=== PATIENT | female | born 1970 | race Hispanic/Latino ===

== ENCOUNTER 2021-11-14 11:45 | Outpatient (CLI) | payer OTHER | END 2021-11-14 11:46 | disposition home or self-care (01) | LOC: CSHLAB 11:45 | PROVIDERS: ATTEND Internal Medicine Gastroenterology | DX: Z20.822 Contact with and (suspected) exposure to COVID-19 (principal); Z12.11 Encounter for screening for malignant neoplasm of colon | CPT/HCPCS: 87811 ==

== ENCOUNTER 2021-11-19 07:57 | Day surgery (SDC) | payer OTHER ==
[2021-11-15 10:38] VITALS: BMI 27.6
[2021-11-19] MEDS ORDERED: PROPOFOL 20 ML ONE ×2 (09:49)
[2021-11-19] MEDS ORDERED: Lidocaine 1% PF 5 ML VIAL ONE (09:49)
[2021-11-19] MEDS ORDERED: Lidocaine 1% MPF 2 ML VIAL ONE (10:05)
[2021-11-19] MEDS ORDERED: Midazolam HCl 2 mg/2 ml Vial ONE (10:18)
== END 2021-11-19 11:17 | disposition home or self-care (01) ==
LOC: CSHSDC 07:57
PROVIDERS: ATTEND Internal Medicine Gastroenterology
PROC: 0DBN8ZZ Excision of Sigmoid Colon, Via Natural or Artificial Opening Endoscopic (ICD-10-PCS; principal; 2021-11-19)
DX: Z12.11 Encounter for screening for malignant neoplasm of colon (principal); K62.1 Rectal polyp; K63.5 Polyp of colon; K64.9 Unspecified hemorrhoids; E78.5 Hyperlipidemia, unspecified; F41.9 Anxiety disorder, unspecified; M54.9 Dorsalgia, unspecified; Z87.891 Personal history of nicotine dependence; Z20.822 Contact with and (suspected) exposure to COVID-19
CPT/HCPCS: 88305; J2250; J2704